=== PATIENT | female | born 1975 | race Caucasian/White ===

== ENCOUNTER → 2017-02-06 | Outpatient (CLI) | payer BC ==
--- NOTE | 2017-02-06 09:14 | MM ---
Reason for exam: clinical finding. Baseline mammogram. Indicated problem(s): lump or thickening in the left breast. Physical Findings: Nurse Summary: 1cm nodule in the left breast at 1 o'clock and 7 o'clock (nurse katrin). MG Diagnostic Mammo w CAD JESSICA Bilateral CC and MLO view(s) were taken. The breast tissue is heterogeneously dense. This may lower the sensitivity of mammography. There is no discrete abnormality at palpable regions. Bilateral nodularity, no nodule more suspicious than another. These results were verbally communicated with the patient and result sheet given to the patient on 02/06/17. ASSESSMENT: Incomplete: need additional imaging evaluation, BI-RAD 0 RECOMMENDATION: Ultrasound of the left breast.
--- NOTE | 2017-02-06 09:15 | USB ---
Reason for exam: additional evaluation requested from abnormal screening. US Breast LT Left breast ultrasound includes all four quadrants, the retroareolar region and axilla. Finding demonstrates duct ectasia at the posterior nipple. These results were verbally communicated with the patient and result sheet given to the patient on 02/06/17. ASSESSMENT: Negative, BI-RAD 1 RECOMMENDATION: Routine screening mammogram of both breasts in 1 year. Manage patient on a clinical basis.
== END ==
LOC: RADMAMWWP 07:31
PROVIDERS: ATTEND Internal Medicine
DX: N63.42 Unspecified lump in left breast, subareolar (principal); R92.8 Other abnormal and inconclusive findings on diagnostic imaging of breast
CPT/HCPCS: 76641; G0204

== ENCOUNTER → 2017-03-03 | Outpatient (CLI) | payer BC ==
--- NOTE | 2017-03-03 10:28 | XR ---
EXAMINATION TYPE: XR KUB DATE OF EXAM: 03/03/2017 COMPARISON: 02/04/2017 HISTORY: Right renal stone TECHNIQUE: One view abdominal series FINDINGS: The osseous structures are intact. The bowel gas pattern is nonspecific. Right kidney: There is a 2 mm right mid to lower pole renal calculus stable relative to prior exam. N o additional calculi identified. Left kidney: There is a lower pole calculus measuring approximately 4 mm. This may have been obscured on the previous exam by bowel content. No additional calculi identified. Pelvis: There are multiple stable appearing calculi measuring less than 5 mm. IMPRESSION: 1. Stable-appearing 2 mm right renal calculus. 2. There is a 4 mm lower pole left renal calculus which may have been obscured by bowel content on th e previous exam. 3. Stable punctate calcifications involving the pelvis on the right which are nonspecific. Larger kaila cifications are suggestive of phleboliths. As previously noted one of these may be within the course of the right ureter. Findings are unchanged relative to the previous exam.
== END | disposition home or self-care (01) ==
LOC: RADXRMAIN 10:00
PROVIDERS: ATTEND Urology
DX: N20.0 Calculus of kidney (principal); Z98.890 Other specified postprocedural states
CPT/HCPCS: 74000

== ENCOUNTER → 2018-10-07 | Outpatient (CLI) | payer BC ==
--- NOTE | 2018-10-12 14:17 | MM ---
Reason for exam: screening (asymptomatic). Last mammogram was performed 1 year and 8 months ago. Physical Findings: A clinical breast exam by your physician is recommended on an annual basis and results should be correlated with mammographic findings. MG 3D Screening Mammo W/Cad Bilateral CC and MLO view(s) were taken. Prior study comparison: February 06, 2017, bilateral MG diagnostic mammo w CAD JESSICA. The breast tissue is heterogeneously dense. This may lower the sensitivity of mammography. There is chronic nodularity in the right breast. No significant changes when compared with prior studies. ASSESSMENT: Benign, BI-RAD 2 RECOMMENDATION: Routine screening mammogram of both breasts in 1 year.
== END | disposition home or self-care (01) ==
LOC: RADMAMWWP 13:36
PROVIDERS: ATTEND Internal Medicine
DX: Z12.31 Encounter for screening mammogram for malignant neoplasm of breast (principal)
CPT/HCPCS: 77063; 77067

== ENCOUNTER 2021-01-06 15:28 | Emergency (ER) | payer BC ==
[2021-01-06 15:33] VITALS: BP 154/80; PULSE 79; RESP 20; TEMP 97.6
--- NOTE | 2021-01-06 17:08 | XR ---
EXAMINATION TYPE: XR foot limited RT DATE OF EXAM: 01/06/2021 COMPARISON: NONE HISTORY: Pain TECHNIQUE: 2 views FINDINGS: Metatarsals are intact. I see no fracture nor dislocation. There is plantar and Achilles ca lcaneal spurring. There are no erosions. IMPRESSION: Negative right foot exam. No fracture.
[2021-01-06] MEDS ORDERED: KETOROLAC 15 MG/ML 1 ML VIAL IM STA (17:13)
--- NOTE | 2021-01-06 17:13 | ED ---
Extremity Problem HPI - General Chief complaint: Extremity Problem,Nontraumatic Stated complaint: leg pain Time Seen by Provider: 01/06/21 15:45 Source: patient Mode of arrival: ambulatory Limitations: no limitations - History of Present Illness Initial comments: Zenobia is a 45-year-old female who presents the ER today for evaluation of pain in her right heel. Patient states that yesterday she developed pain in the heel. Pain is worse with ambulation. She's tried applying ice with no improvement. Denies any injury, denies any new shoes. - Related Data Allergies Allergy/AdvReac Type Severity Reaction Status Date / Time No Known Allergies Allergy Verified 01/06/21 15:33 Review of Systems ROS Statement: Those systems with pertinent positive or pertinent negative responses have been documented in the HPI. ROS Other: All systems not noted in ROS Statement are negative. Past Medical History Additional Past Medical History / Comment(s): Anemia History of Any Multi-Drug Resistant Organisms: None Reported Past Surgical History: No Surgical Hx Reported Past Psychological History: No Psychological Hx Reported Smoking Status: Never smoker Past Alcohol Use History: None Reported Past Drug Use History: None Reported General Exam - General Exam Comments Initial Comments: Physical Exam GENERAL: Patient is well-developed and well-nourished. Patient is nontoxic and well-hydrated and is in no distress. HENT: Normocephalic, Atraumatic. EYES: PERRL, EOMI PULMONARY: Unlabored respirations. CARDIOVASCULAR: RRR Warm and well perfused extremities ABDOMEN: Non-distended SKIN: No rashes or bruising : Deferred NEUROLOGIC: Alert and oriented Normal speech Normal gait MUSCULOSKELETAL: Moving all extremities with no apparent injury Tenderness to palpation of posterior calcaneus, there is some callus over this area likely from chronic where from shoes, bunionette noted on lateral side of the baby toe PSYCHIATRIC: No SI/HI Limitations: no limitations Course Vital Signs 01/06/21 15:31 Temperature 97.6 F Pulse Rate 79 Respiratory 20 Rate Blood Pressure 154/80 O2 Sat by Pulse 100 Oximetry Medical Decision Making - Medical Decision Making The patient was seen history is obtained from patient, patient has atraumatic pain in her posterior heel, she has good strength in plantar flexion and dorsiflexion. She has no pain to outpatient over the Achilles tendon. She's not been on any recent medications including for quinolones. She does have some bunionette and callusing around her foot. She denies any new shoes that would've caused irritation. X-ray was obtained and reveals a heel spur. Supportive care was recommended patient was advised she can follow with orthopedics or podiatry for further management. Disposition Clinical Impression: Calcaneal spur Disposition: HOME SELF-CARE Condition: Stable Instructions (If sedation given, give patient instructions): Heel Spur (ED) Is patient prescribed a controlled substance at d/c from ED?: No Referrals: Driss Rivera MD [Primary Care Provider] - 1-2 days
== END 2021-01-06 17:25 | disposition home or self-care (01) ==
LOC: EC 15:28
DX: M77.31 Calcaneal spur, right foot (principal)
CPT/HCPCS: 99283

== ENCOUNTER 2022-10-10 07:00 | Day surgery (SDC) | payer BC ==
--- NOTE | 2022-10-07 08:32 | P.GSHP ---
History of Present Illness H&P Date: 10/07/22 Chief Complaint: Right renal colic The patient is a 47-year-old white female with a history of urolithiasis, for which she underwent ESWL. She experienced acute onset of right lower back and lower abdominal pain on 09/30/2022. CT scan at that time showed moderate right hydronephrosis due to a 6 mm right distal ureteral calculus. Patient was also found to have a 4 mm right renal calculus and a 1 cm left renal calculus. - Constitutional Constitutional: Denies chills, Denies fever - Gastrointestinal Gastrointestinal: Reports abdominal pain, Reports nausea, Reports vomiting - Genitourinary (Female) Genitourinary: Reports flank pain, Reports kidney stones Past Medical History Additional Past Medical History / Comment(s): Anemia History of Any Multi-Drug Resistant Organisms: None Reported Past Surgical History: No Surgical Hx Reported Past Psychological History: No Psychological Hx Reported Smoking Status: Never smoker Past Alcohol Use History: None Reported Past Drug Use History: None Reported Medications and Allergies Allergies Allergy/AdvReac Type Severity Reaction Status Date / Time No Known Allergies Allergy Verified 01/06/21 15:33 Surgical - Exam - General well developed, well nourished, no distress - Neck no masses, trachea midline - Respiratory normal respiratory effort - Abdomen Abdomen: soft, tender (Mild right lower quadrant tenderness), no guarding, no rigid, no rebound - Psychiatric oriented to time, oriented to person, oriented to place, speech is normal, memory intact Results - Imaging CT scan - abdomen: report reviewed, image reviewed Assessment and Plan (1) Calculus of ureter Status: Acute Code(s): N20.1 - CALCULUS OF URETER SNOMED Code(s): 92363516 (2) Calculus of kidney Status: Acute Code(s): N20.0 - CALCULUS OF KIDNEY SNOMED Code(s): 76636125 Plan: Cystoscopy, right retrograde pyelogram, right ureteroscopy with holmium laser lithotripsy and possible stone basketing. The patient is aware of the possible need for a right ureteral stent. If one is to be placed, an attempt will be made to remove the right renal calculus. Conversely, if removal of the distal ureteral calculus is uncomplicated and will not warrant placement of a stent, the right renal calculus will not be removed. The patient is understanding of this plane, as well as potential risks which include anesthesia, bleeding, infection, ureteral injury, and inability to successfully remove the calculi.
[2022-10-07 14:16] VITALS: BMI 25.0
[2022-10-10] MEDS ORDERED: SCOPOLAMINE 1 MG/72 HR PATCH TRANSDERM ONE (07:34)
[2022-10-10] MEDS ORDERED: HYDROmorphone 0.5 MG/0.5 ML SYRINGE IVP PRN (07:34)
[2022-10-10] MEDS ORDERED: ONDANSETRON 4 MG/2 ML VIAL IVP ONE (07:34)
[2022-10-10] MEDS ORDERED: DEXAMETHASONE SOD PHOSPHATE 4 MG/ML 1 ML VIAL IV ONE (07:34)
[2022-10-10] MEDS ORDERED: MIDAZOLAM 2 MG/2 ML VIAL IV PRN (07:34)
--- NOTE | 2022-10-10 07:43 | XR ---
EXAMINATION TYPE: XR KUB DATE OF EXAM: 10/10/2022 Comparison: 03/03/2017 Clinical History: 47-year-old female N20.0 Findings: Nonobstructive bowel gas pattern. Scattered [id number] stool. Numerous pelvic phleboliths. 8 mm calcification left abdomen. 3 mm calcification right mid abdomen. Impression: Suggestion of a couple renal calculi on either side measuring up to 8 mm on the left.
[2022-10-10] MEDS: LACTATED RINGERS 1,000 ML IV SCH ×3 (08:10→10:57)
[2022-10-10] MEDS ORDERED: MIDAZOLAM 2 MG/2 ML VIAL ONE (09:00)
[2022-10-10] MEDS ORDERED: SUCCINYLCHOLINE CHLORIDE 200 MG/10 ML VIAL IV ONE (09:00)
[2022-10-10] MEDS ORDERED: KETOROLAC 15 MG/ML 1 ML VIAL ONE (09:00)
[2022-10-10] MEDS ORDERED: GLYCOPYRROLATE 0.2 MG/ML 2 ML VIAL ONE (09:00)
[2022-10-10] MEDS ORDERED: PROPOFOL 10 MG/ML 20 ML VIAL IV ONE (09:00)
[2022-10-10] MEDS ORDERED: LIDOCAINE 2% INJ 20 MG/ML (2 ML VIAL) ONE (09:00)
[2022-10-10] MEDS ORDERED: NEOSTIGMINE 1 MG/ML 10 ML VIAL ONE (09:00)
[2022-10-10] MEDS ORDERED: fentaNYL (PF) 50 MCG/ML 2 ML AMP ONE (09:00)
[2022-10-10] MEDS ORDERED: LIDOCAINE 4% LTA KIT (4 ML) TOPICAL ONE (09:00)
[2022-10-10] MEDS ORDERED: ROCURONIUM 10 MG/ML (5 ML VIAL) IV ONE (09:00)
[2022-10-10] MEDS ORDERED: IOPAMIDOL-370 100ML BTL MISCELLANE ONE ×2 (09:24)
--- NOTE | 2022-10-10 09:48 | P.OP ---
Date of Procedure: 10/10/22 Preoperative Diagnosis: Right ureteral calculus Postoperative Diagnosis: Same Procedure(s) Performed: The patient was taken to the operating room and placed in the dorsolithotomy position, with legs supported in Ghassan stirrups. The external genitalia was prepped and draped sterilely. The 30 lens was used to introduce the 21-Maldivian Adams cystoscopic sheath through the urethra and into the bladder under direct vision. The bladder was examined in its entirety. Both ureteral orifices were normal anatomic location and configuration, and clear urine effluxed from both. No tumors or foreign bodies were seen. The Adams semirigid ureteroscope was advanced into the bladder, and the right ureteral orifice was cannulated. The 272 micron Holmium laser probe was passed through the ureteroscope, and lithotripsy was performed. The bladder was emptied and the cystoscope removed. The patient tolerated the procedure well and was taken to the recovery room in stable condition. [facility] [place] Report: Procedure Acuity: Semi-Urgent Stone Size and Location: 6 mm, right distal ureter Ureteral Dilation: No Ureteral Access Sheath Used: No Stone Sent for Analysis: Yes All Stones/Fragments Were Removed: Yes Complications: No Preoperative Antibiotics Given: Yes Stent Placed: No Discharge Medications: None Anesthesia: UDAYA Surgeon: Gonzalez Caldwell Estimated Blood Loss (ml): 0 IV fluids (ml): 500 Pathology: other (Right ureteral calculus fragments, sent for chemical analysis) Condition: stable Disposition: PACU Indications for Procedure: The patient is a 47-year-old white female with a history of urolithiasis, for wh ich she underwent ESWL. She experienced acute onset of right lower back and lower abdominal pain on 09/30/2022. CT scan at that time showed moderate right hydronephrosis due to a 6 mm right distal ureteral calculus. Patient was also found to have a 4 mm right renal calculus and a 1 cm left renal calculus. Preoperative KUB x-ray shows several right pelvic calcifications, one of which appears to be a right distal ureteral calculus. Description of Procedure: The patient was taken to the operating room and placed in the dorsolithotomy position, with legs supported in Ghassan stirrups. The external genitalia was prepped and draped sterilely. The 30 lens was used to introduce the 21-Maldivian Adams cystoscopic sheath through the urethra and into the bladder under direct vision. The bladder was examined in its entirety. Both ureteral orifices were normal anatomic location and configuration. No tumors or foreign bodies were seen. Using a 10-Maldivian cone-tipped catheter, a right retrograde pyelogram was performed. The right distal ureter appeared slightly irregular, though a calculus was not seen with certainty. The cystoscope was removed, and the Adams semirigid ureteroscope was advanced into the bladder. The right ureteral orifice was cannulated, and the ureteroscope was slowly advanced under direct vision until the calculus was identified at the level of the iliac vessels. The 272 micron Holmium laser probe was passed through the ureteroscope, and lithotripsy was performed. Calculus fragments broke away and passed distally into the bladder. Mild edema was noted at the site where the stone was impacted, and the decision was made not to place a stent. Pullout ureteroscopy showed no evidence of ureteral trauma, and no residual calculus fragments within the ureter. After removing the ureteroscope, the cystoscope was replaced into the bladder and calculus fragments were drained from the bladder. These were saved and sent for chemical analysis. The patient tolerated the procedure well and was taken to the recovery room in stable condition. [facility] Report: Procedure Acuity: Semi-Urgent Stone Size and Location: 6 mm, right distal ureter Ureteral Dilation: No Ureteral Access Sheath Used: No Stone Sent for Analysis: Yes All Stones/Fragments Were Removed: Yes Complications: No Preoperative Antibiotics Given: Yes Stent Placed: No Discharge Medications: None
[2022-10-10 10:08] VITALS: TEMP 97.2
--- NOTE | 2022-10-10 10:25 | FL ---
EXAMINATION TYPE: FL urography retrograde DATE OF EXAM: 10/10/2022 COMPARISON: NONE HISTORY: Fluoroscopy time. Fluoroscopy was provided to the referring clinician.
[2022-10-10 10:26] VITALS: RESP 16
[2022-10-10 10:56] VITALS: BP 157/73; PULSE 57
== END 2022-10-10 11:15 | disposition home or self-care (01) ==
LOC: OR 07:00
PROVIDERS: ATTEND Urology
DX: N20.2 Calculus of kidney with calculus of ureter (principal); D64.9 Anemia, unspecified; F12.90 Cannabis use, unspecified, uncomplicated; K21.9 Gastro-esophageal reflux disease without esophagitis; Z79.899 Other long term (current) drug therapy; Z86.73 Personal history of transient ischemic attack (TIA), and cerebral infarction without residual deficits
CPT/HCPCS: 52353; 81025; 82365; 74420; 74018; C1758; J2250; J0330; J1100; J2710; J0690; J2405; J3010; J1885; J2704; Q9967; J2001

== ENCOUNTER → 2022-11-05 | Outpatient (CLI) | payer BC ==
--- NOTE | 2022-11-06 19:15 | MM ---
Reason for Exam: Screening (asymptomatic). Last mammogram was performed 4 year(s) and 1 month(s) ago. Patient History: Menarche at age 13. First Full-Term at age 19. Risk Values: Nazia 5 year model risk: 0.6%. NCI Lifetime model risk: 7.7%. Prior Study Comparison: 02/06/2017 Bilateral Diagnostic Mammogram, [facility]. 10/07/2018 Bilateral Screening Mammogram, [facility]. Tissue Density: The breast tissue is heterogeneously dense. This may lower the sensitivity of mammography. Findings: Analyzed By CAD. Possible architectural distortion in 5-6 o'clock left breast anterior to middle depth for which further evaluation is recommended. Chronic nodularity upper outer quadrant right breast. Overall Assessment: Incomplete: need additional imaging evaluation, BI-RAD 0 Management: Special View Mammogram of the left breast. Diagnostic Breast Ultrasound of the left breast. If any persisting abnormality on additional mammographic workup. Electronically signed and approved by: Janeth Pham M.D. Radiologist
== END | disposition home or self-care (01) ==
LOC: RADMAMWWP 15:58
PROVIDERS: ATTEND Obstetrics & Gynecology
DX: Z12.31 Encounter for screening mammogram for malignant neoplasm of breast (principal)
CPT/HCPCS: 77063; 77067

== ENCOUNTER → 2022-11-14 | Outpatient (CLI) | payer BC ==
--- NOTE | 2022-11-14 14:06 | MM ---
Reason for Exam: Additional evaluation requested from abnormal screening. Last screening mammogram was performed less than 1 month ago. Patient History: Menarche at age 13. First Full-Term at age 19. Risk Values: Nazia 5 year model risk: 0.6%. NCI Lifetime model risk: 7.7%. Prior Study Comparison: 02/06/2017 Bilateral Diagnostic Mammogram, [facility]. 10/07/2018 Bilateral Screening Mammogram, [facility]. 11/05/2022 Bilateral MG 3D screening mammo w/cad, [facility]. Tissue Density: Left: The breast tissue is heterogeneously dense. This may lower the sensitivity of mammography. Findings: Analyzed By CAD. Questionable persistent distortion 5:00 position anterior to middle depth in the left breast. Further ultrasound evaluation recommended. Overall Assessment: Incomplete: need additional imaging evaluation, BI-RAD 0 Management: Diagnostic Breast Ultrasound of the left breast. Electronically signed and approved by: Janeth Pham M.D. Radiologist
--- NOTE | 2022-11-14 14:38 | USB ---
Reason for Exam: Additional evaluation requested from abnormal screening. Patient History: Menarche at age 13. First Full-Term at age 19. Risk Values: Nazia 5 year model risk: 0.6%. NCI Lifetime model risk: 7.7%. Technique: Method: Targeted. Patient Position: Supine. Prior Study Comparison: 02/06/2017 Bilateral Diagnostic Mammogram, [facility]. 10/07/2018 Bilateral Screening Mammogram, [facility]. 11/05/2022 Bilateral MG 3D screening mammo w/cad, [facility]. Findings: The whole breast of the left breast, the axilla of the left breast and the retroareolar of the left breast were scanned. A complete US of all four quadrants of the breast, axilla, and retro-areolar region were reviewed. At the 5:00 position, 5 cm from the nipple, there is a vague hypoechoic area measuring 1.1 x 1.1 x 0.9 cm. Unclear if this represents a true lesion. Tissue elsewhere throughout the breast has a shadowing appearance. The area 5:00 was slightly more pronounced than other scattered areas throughout the breast and corresponds to location on mammogram. For this reason, tissue sampling is recommended. Mammographic correlation after clip placement is recommended. Overall Assessment: Suspicious, BI-RAD 4 Management: Ultrasound Core Biopsy of the left breast. For the vague hypoechoic area at the 5:00 position. Mammographic correlation after clip placement recommended. Results were given to the patient verbally at the time of exam. Electronically signed and approved by: Janeth Pham M.D. Radiologist
== END | disposition home or self-care (01) ==
LOC: RADMAMWWP 13:39
PROVIDERS: ATTEND Obstetrics & Gynecology
DX: R92.8 Other abnormal and inconclusive findings on diagnostic imaging of breast (principal)
CPT/HCPCS: 77061; 77065

== ENCOUNTER → 2022-11-19 | Outpatient (CLI) | payer BC ==
--- NOTE | 2022-11-19 14:50 | US ---
EXAMINATION TYPE: US kidneys/renal and bladder DATE OF EXAM: 11/19/2022 COMPARISON: NONE CLINICAL INDICATION: Female, 47 years old with history of N13.2 HYDRONEPHROSIS W/ CALCULUS; Hx of sto renan hydronephrosis EXAM MEASUREMENTS: Right Kidney: 12.2 x 5.4 x 5.9 cm Left Kidney: 13.6 x 4.9 x 4.9 cm Right Kidney: Fullness of renal pelvis Left Kidney: Fullness of renal pelvis Bladder: anechoic Bilateral Jets seen: no Clinical Assessment Manager notes: Incidental finding fibroid uterus measuring 14 x 11.3 x 12.5 cm. A large underlyin g fibroid measures nearly 10 cm and likely has pronounced mass effect on to the endometrium. IMPRESSION: 1. Mild bilateral pelviectasis probably transient. No calyceal dilatation to suggest hydronephrosis a t this time. Short interval follow-up can be considered. 2. Incidental bulky fibroid uterus. An underlying 10 cm fibroid likely has pronounced mass effect on the endometrium.
== END | disposition home or self-care (01) ==
LOC: RADUSWWP 08:03
PROVIDERS: ATTEND Urology
DX: D25.9 Leiomyoma of uterus, unspecified (principal); N13.2 Hydronephrosis with renal and ureteral calculous obstruction; N28.89 Other specified disorders of kidney and ureter
CPT/HCPCS: 76770

== ENCOUNTER → 2022-11-27 | Day surgery (SDC) | payer BC ==
--- NOTE | 2022-12-04 09:53 | MM ---
Reason for Exam: Post Procedure Mammogram. Last screening mammogram was performed less than 1 month ago. Patient History: Menarche at age 13. First Full-Term at age 19. Last menstrual period: 11/19/2022 Risk Values: Nazia 5 year model risk: 0.6%. NCI Lifetime model risk: 7.7%. Prior Study Comparison: 02/06/2017 Bilateral Diagnostic Mammogram, [facility]. 10/07/2018 Bilateral Screening Mammogram, [facility]. 11/05/2022 Bilateral MG 3D screening mammo w/cad, [facility]. 11/14/2022 Left MG 3D work up w/cad , [facility]. Tissue Density: Left: The breast tissue is heterogeneously dense. This may lower the sensitivity of mammography. Pathology Description: Location: 5 o'clock. Marker Left Behind. Needle Type: Mammotome Cores: 7 Skin Nicks: 1 The procedure of ultrasound guided core biopsy was explained to the patient. Benefits, alternatives, and risks were discussed. An informed consent was then obtained. The vague area of shadowing at the 5:00 position within the left breast is identified and targeted for biopsy. We note that the area varies in the degree of suspicious appearance depending on imaging technique and there are other areas of shadowing breast tissue. The patient was placed in supine positioning for imaging and for the procedure. The overlying skin was prepped and draped in usual sterile fashion. Lidocaine was used as anesthetic into the skin and subcutaneous tissue up to area of concern in the 5:00 left breast. Under ultrasound guidance, a 13-gauge vacuum-assisted mammotome Elite biopsy gun was used to obtain 7 core samples. Following this, a biopsy clip was left at the site of biopsy. The patient tolerated the procedure well without any immediate complication. The patient was kept in the radiology department for short stay after the procedure and then discharged home in stable condition. Postprocedure mammogram: The patient was transferred to mammography for physician ordered post procedure mammogram for clip placement verification. Post procedure mammogram shows coil clip located approximately 1.0-1.5 cm posterior to the density on mammogram. IMPRESSION: Successful, uncomplicated ultrasound guided core biopsy of area of concern in the 5:00 left breast, full pathology results to follow. We note that the area is very vague on ultrasound and other shadowing areas of breast tissue are present. In addition, the clip is located 1.0 to 1.5 cm posterior to the mammographic finding on the postbiopsy images. If benign results, further 3-D mammogram/tomographic guided biopsy should be considered. Pathology Results: Result: Benign, Fibrocystic change. LEFT BREAST, FIVE O'CLOCK POSITION, ULTRASOUND GUIDED NEEDLE CORE BIOPSY: Fibrocystic change with apocrine metaplasia, columnar cell change, focal microcalcification and fibrosis with fibroadenomatoid hyperplasia. Current specimen negative for in situ or invasive carcinoma. See note. Notes In order to confirm a benign diagnosis, immunohistochemistry with smooth muscle myosin heavy chain and p63 are performed with appropriate controls on the cell block. Both myosin heavy chain and p63 stains are positive within myoepithelial cells surrounding ductal structures, which supports a benign diagnosis. Imaging correlation is suggested, as deemed clinically appropriate. Overall Assessment: Benign Assessment: MG diagnostic mammo LT wo CAD. - Left: Benign, BI-RAD 2. Management: Diagnostic Mammogram of the left breast in 6 months. Diagnostic Breast Ultrasound of the left breast in 6 months. Electronically signed and approved by: Janeth Pham M.D. Radiologist
== END ==
LOC: RADUSWWP 10:11
PROVIDERS: ATTEND Surgery
DX: N60.12 Diffuse cystic mastopathy of left breast (principal)
CPT/HCPCS: 88305; 88342; 88341; 77065; 19083; A4648

== ENCOUNTER 2023-01-27 07:18 | Day surgery (SDC) | payer BC ==
[~2023-01-27 07:18] MED LIST: ACETAMINOPHEN TAB 500 MG TAB PO PRN; HEPARIN SODIUM,PORCINE/PF 5,000 UNIT/0.5 ML SYRINGE SQ PRN
[2023-01-27] MEDS ORDERED: LIDOCAINE 1% (10MG/ML) FOR IV START INTRADERMA PRN (07:38)
[2023-01-27] MEDS ORDERED: DEXAMETHASONE SOD PHOSPHATE 4 MG/ML 1 ML VIAL IV ONE (07:38)
[2023-01-27] MEDS ORDERED: LACTATED RINGERS 1,000 ML IV SCH (07:38)
[2023-01-27] MEDS ORDERED: ONDANSETRON 4 MG/2 ML VIAL IVP ONE (07:38)
[2023-01-27] MEDS ORDERED: ALPRAZolam 0.5 MG TAB PO PRN (07:38)
[2023-01-27] MEDS ORDERED: METOCLOPRAMIDE 5 MG/ML 2 ML VIAL IVP PRN ×2 (07:38)
[2023-01-27] MEDS ORDERED: HYDROmorphone 0.5 MG/0.5 ML SYRINGE IVP PRN (07:38)
[2023-01-27] MEDS ORDERED: SCOPOLAMINE 1 MG/72 HR PATCH TRANSDERM ONE (07:38)
[2023-01-27 08:03] VITALS: TEMP 97.3
--- NOTE | 2023-01-27 08:35 | P.GSHP ---
History of Present Illness H&P Date: 01/27/23 Chief Complaint: Abnormal left mammogram 47-year-old female underwent recent left breast workup. Patient had abnormalities seen on mammogram that led to an ultrasound showing a 1.1 cm lesion. Ultrasound-guided core biopsy showed fibrocystic changes. The mammogram performed after the biopsy showed the clip to be 1.5 cm away from the mammographic abnormality. Patient underwent stereotactic core biopsy of the index lesion. Stereotactic biopsy revealed complex sclerosing lesion with radial scar. Patient and I discussed findings by phone. Decided to proceed with left breast wire localization biopsy. Past Medical History Past Medical History: GERD/Reflux Additional Past Medical History / Comment(s): hx. Anemia, kidney stones History of Any Multi-Drug Resistant Organisms: None Reported Past Surgical History: Section Additional Past Surgical History / Comment(s): colonoscopy Past Anesthesia/Blood Transfusion Reactions: No Reported Reaction Smoking Status: Former smoker - Past Family History Mother Family Medical History: No Reported History Medications and Allergies Home Medications Medication Instructions Recorded Confirmed Type Ferrous Sulfate [Feosol] 325 mg PO DAILY 01/21/23 01/27/23 History Ibuprofen [Motrin] 600 mg PO Q6HR PRN 01/21/23 01/27/23 History Allergies Allergy/AdvReac Type Severity Reaction Status Date / Time No Known Allergies Allergy Verified 01/27/23 08:19 Surgical - Exam Vital Signs Temp Pulse Resp BP Pulse Ox 97.3 F L 73 18 145/65 97 01/27/23 07:51 01/27/23 07:51 01/27/23 07:51 01/27/23 07:51 01/27/23 07:51 Physical exam: General: Well-developed, well-nourished HEENT: Normocephalic, sclerae nonicteric Right breast: No masses, no adenopathy Left breast: Recent scar noted, no masses or adenopathy Abdomen: Nontender, nondistended Extremities: No edema Neuro: Alert and oriented Assessment and Plan (1) Abnormal mammogram of left breast Narrative/Plan: Will proceed with left breast wire localization biopsy at this time. Risks of bleeding, infection, scarring, possible need for further surgery reviewed. Patient understands and wishes to proceed. Current Visit: Yes Status: Acute Code(s): R92.8 - OTH ABN AND INCONCLUSIVE FINDINGS ON DX IMAGING OF BREAST SNOMED Code(s): 566915056
[2023-01-27] MEDS ORDERED: MIDAZOLAM 2 MG/2 ML VIAL ONE (10:13)
[2023-01-27] MEDS ORDERED: LIDOCAINE 1% INJ 10MG/ML (20 ML MDV) ONE (10:13)
[2023-01-27] MEDS ORDERED: PROPOFOL 10 MG/ML 20 ML VIAL IV ONE (10:13)
[2023-01-27] MEDS ORDERED: fentaNYL (PF) 50 MCG/ML 2 ML AMP ONE (10:13)
[2023-01-27] MEDS ORDERED: BUPIVACAINE (PF) 0.25% 30 ML VIAL SQ ONE (10:14)
[2023-01-27] MEDS ORDERED: NALOXONE 0.4 MG/ML 1 ML VIAL IV PRN (11:03)
--- NOTE | 2023-01-27 11:07 | P.OP ---
Date of Procedure: 01/27/23 Procedure(s) Performed: PREOPERATIVE DIAGNOSIS: Abnormal left mammogram POSTOPERATIVE DIAGNOSIS: Same PROCEDURE: Left Breast wire localization biopsy SURGEON: Joseph EBL: Minimal ANESTHESIA: General plus local COMPLICATIONS: None OPERATIVE PROCEDURE: Patient was placed on the operating room table in the supi ne position. The patient's breast was prepped and draped in usual sterile fashion. A curvilinear incision was made adjacent to the wire entrance site. I followed the wire down into the breast tissue. The breast tissue around the mid aspect of the wire was fully excised using electrocautery. The specimen was sent for specimen radiogram. As I inspected the tissues I noticed a small scar adjacent to our excision site. This was excised as well and did appear to contain a small clip as well. I suspected this was the second clip from the prior biopsy. Specimen radiograph confirmed that both clips were present within the specimen. The subcutaneous tissues were inspected. No bleeding was seen. The subcutaneous tissues were closed using 3-0 Vicryl sutures. The skin was closed using a running 4-0 Monocryl stitch. Skin glue and sterile dressings were applied. DISPOSITION: Stable to recovery room
[2023-01-27 11:18] VITALS: RESP 16
--- NOTE | 2023-01-27 11:29 | MM ---
Risk Values: Nazia 5 year model risk: 1.7%. NCI Lifetime model risk: 12.0%. Electronically signed and approved by: Willie Mitchell DO
--- NOTE | 2023-01-27 11:32 | MM ---
Risk Values: Nazia 5 year model risk: 1.7%. NCI Lifetime model risk: 12.0%. Prior Study Comparison: 11/14/2022 Left MG 3D work up w/cad LT, [facility]. 11/27/2022 Left MG diagnostic mammo LT wo CAD., [facility]. 01/07/2023 Left MG 3D follow up no charge LT, [facility]. Pathology Description: Location: anterior, central. Approach: Lateral to Medial Needle Type: 9 cm Kopan The procedure of needle localization with wire placement and than surgical excision was explained to the patient. Benefits, alternatives, and risks were discussed. An informed consent was then obtained. The shortest pathway for procedure was chosen. The overlying skin was prepped and draped in usual sterile fashion. Lidocaine was used as anesthetic into the skin and subcutaneous tissue up to the level of area of concern. A 7 cm needle was used. It was placed via a right lateral approach under mammographic guidance. Subsequent 90 degrees mammogram show the needle to be in satisfactory position relative to the targeted area. At this point, wire was placed and the needle was withdrawn. The wire was fixed to patient's skin. Images were marked for surgeon. The patient tolerated the procedure well without any immediate complication. The patient was kept in the radiology department for short stay after the procedure and then taken to surgery for surgical excision. Surgical clips and wire are identified in specimen mammogram. The patient was kept in hospital for short stay after the procedure and then discharged home in stable condition. Impression: Successful, uncomplicated needle localization with wire placement and surgical excision of surgical clip and surrounding tissues/mass in the left breast, full pathology results to follow. Pathology Results: Results pending. Electronically signed and approved by: Willie Mitchell DO
[2023-01-27 12:20] VITALS: PULSE 65
[2023-01-27 12:21] VITALS: BP 170/83
== END 2023-01-27 12:44 | disposition home or self-care (01) ==
LOC: OR 07:18
PROVIDERS: ATTEND Surgery
DX: N60.82 Other benign mammary dysplasias of left breast (principal); K21.9 Gastro-esophageal reflux disease without esophagitis; Z87.442 Personal history of urinary calculi; Z98.891 History of uterine scar from previous surgery; Z87.891 Personal history of nicotine dependence; Z79.899 Other long term (current) drug therapy
CPT/HCPCS: 19125; 81025; 88307; 76098; 19281; C1819; J2250; J1100; J2765; J0690; J2405; J2001; J3010; J2704; J1170; J1644; J0665